=== PATIENT | male | born 1990 | race Caucasian/White ===

== ENCOUNTER 2023-12-25 12:54 | Inpatient (IN) | payer OTHER ==
[2023-12-25 13:24] VITALS: BMI 24.1
[2023-12-25] MEDS ORDERED: MAGNESIUM HYDROX 2400MG/30ML ORAL SUSPENSION 30 ML CUP PO PRN (14:10)
[2023-12-25] MEDS ORDERED: NALOXONE (NARCAN) HCL 4 MG/0.1 ML SPRAY NS PRN (14:10)
[2023-12-25] MEDS ORDERED: BISMUTH SUBSALICYLATE 262 MG/15 ML BTL PO PRN (14:10)
[2023-12-25] MEDS ORDERED: POLYETHYLENE GLYCOL (HEALTHYLAX) 3350 17 GM PACKET PO PRN (14:10)
[2023-12-25] MEDS ORDERED: LOPERAMIDE HCL 2 MG CAPSULE PO PRN (14:10)
[2023-12-25] MEDS ORDERED: ACETAMINOPHEN 325 MG TABLET (FP) PO PRN (14:10)
[2023-12-25] MEDS ORDERED: NALOXONE (NYS OPIOID OVERDOSE PROGRAM) 4 MG/0.1 ML SPRAY NS PRN (14:10)
[2023-12-25] MEDS ORDERED: hydrOXYzine PAMOATE 25 MG CAPSULE (FP) PO PRN (14:10)
[2023-12-25] MEDS ORDERED: IBUPROFEN 400 MG TABLET (FP) PO PRN (14:10)
[2023-12-25] MEDS ORDERED: IBUPROFEN 600 MG TABLET (FP) PO PRN (14:10)
[2023-12-25] MEDS ORDERED: MAG HYDROX/AL HYDROX/SIMETH 30 ML UNIT-DOSE CUP PO PRN (14:10)
[2023-12-25] MEDS ORDERED: ONDANSETRON *ODT* 4 MG TABLET SL PRN (14:10)
[2023-12-25] MEDS ORDERED: guaiFENesin 600 MG TABLET.ER (FP) PO PRN (14:10)
[2023-12-25] MEDS ORDERED: BENZONATATE 200 MG CAPSULE PO PRN (14:10)
[2023-12-25] MEDS ORDERED: DICYCLOMINE HCL 10 MG CAPSULE PO PRN (14:10)
[2023-12-25] MEDS ORDERED: NICOTINE 21 MG/24 HOURS TOPICAL PATCH ONE (14:42)
[2023-12-25] MEDS ORDERED: PRENATAL VITAMINS W/ FOLIC ACID TABLET (FP) PO ONE (14:43)
[2023-12-25] MEDS ORDERED: methaDONE HCL 10 MG TABLET (FOR DETOX USE ONLY) ONE (14:43)
[2023-12-25] MEDS: methaDONE HCL 10 MG TABLET (FOR DETOX USE ONLY) PO ONE (14:50)
[2023-12-25] MEDS: PRENATAL VITAMINS W/ FOLIC ACID TABLET (FP) PO SCH (14:51)
[2023-12-25] MEDS: NICOTINE 21 MG/24 HOURS TOPICAL PATCH TD SCH (14:51)
[2023-12-25] MEDS: cloNIDine HCL 0.1 MG TABLET PO SCH (17:38)
[2023-12-25] MEDS: MELATONIN 5 MG TABLETS PO SCH (22:31)
[2023-12-25] MEDS: THIAMINE 100 MG TABLET PO SCH (22:31)
[2023-12-25] MEDS: METHOCARBAMOL 500 MG TABLET PO PRN (22:31)
[2023-12-25] MEDS: BUPRENORPHINE/NALOXONE 0.5 MG/0.125 MG FILM SL ONE (22:31)
[2023-12-26] MEDS: BUPRENORPHINE/NALOXONE 0.5 MG/0.125 MG FILM SL SCH (09:42)
[2023-12-26 14:35] LABS: HEMOGLOBIN 14.6 GM/dL (11.7-16.9); MCH 30.8 pg (25.7-33.7); MEAN CELL VOLUME 93.2 fl (80-96); MEAN PLT VOLUME 7.9 fl (7.5-11.1); PLATELET COUNT 343 10^3/uL (134-434); RBC 4.73 M/mm3 (4.00-5.60); RDW 13.8 % (11.9-15.9); WHITE BLOOD COUNT 6.8 K/mm3 (4.0-10.0)
[2023-12-26 14:40] LABS: POTASSIUM 4.3 mmol/L (3.5-5.1)
[2023-12-26 14:47] LABS: ALBUMIN 4.3 g/dl (3.4-5.0)
[2023-12-26 14:48] LABS: CALCIUM 9.6 mg/dL (8.5-10.1)
[2023-12-26 14:49] LABS: BLOOD UREA NITROGEN 11.6 mg/dL (7-18)
[2023-12-26 14:53] LABS: TOT PROT 7.7 g/dl (6.4-8.2)
[2023-12-26 14:55] LABS: BILIRUBIN,TOTAL 0.9 mg/dL (0.2-1)
[2023-12-26] MEDS: SUVOREXANT 10 MG TABLET PO PRN (22:13)
[2023-12-27] MEDS: BUPRENORPHINE/NALOXONE 2 MG/0.5 MG FILM PACKET SL SCH (09:14)
[2023-12-27] MEDS: methaDONE HCL 10 MG TABLET (FOR DETOX USE ONLY) PO ONE (09:14)
[2023-12-28] MEDS: TRIMETHOBENZAMIDE HCL 200MG/2ML INJ IM PRN (09:10)
[2023-12-28] MEDS: BUPRENORPHINE/NALOXONE 4 MG/1 MG FILM PACKET SL SCH (10:53)
[2023-12-28] MEDS: FAMOTIDINE 20 MG TABLET PO SCH (10:54)
[2023-12-28] MEDS: diazePAM 5 MG TABLET PO PRN (22:02)
[2023-12-28] MEDS: BENZOCAINE/MENTHOL (CHLORASEPTIC ) LOZENGE MM PRN (22:03)
[2023-12-29] MEDS: methaDONE HCL 10 MG TABLET (FOR DETOX USE ONLY) PO ONE (09:41)
[2023-12-29] MEDS: BUPRENORPHINE/NALOXONE 8 MG/2 MG FILM PACKET SL SCH (09:42)
[2023-12-29] MEDS: CYPROHEPTADINE HCL 4 MG TABLET PO SCH (16:39)
[2023-12-30 07:06] VITALS: PULSE 60
[2023-12-30 09:49] VITALS: BP 128/68; RESP 16; TEMP 97.3
[2023-12-30] MEDS: BUPRENORPHINE/NALOXONE 8 MG/2 MG FILM PACKET SL SCH (10:14)
== END 2023-12-30 10:30 | disposition other institution (70) | DRG 773 ==
LOC: YASAS 12:54 → Y6N 14:14
PROVIDERS: ADMIT Allergy & Immunology; ATTEND Surgery
PROC: HZ2ZZZZ Detoxification Services for Substance Abuse Treatment (ICD-10-PCS; principal; 2023-12-25)
DX: F11.23 Opioid dependence with withdrawal (principal); F10.20 Alcohol dependence, uncomplicated; F14.20 Cocaine dependence, uncomplicated; F12.20 Cannabis dependence, uncomplicated; F17.210 Nicotine dependence, cigarettes, uncomplicated; F19.282 Other psychoactive substance dependence with psychoactive substance-induced sleep disorder; K21.9 Gastro-esophageal reflux disease without esophagitis
CPT/HCPCS: 36415; 74019-TC-FY; 80053; 80305; 80307; 85027; 86780; 93005; 93010